=== PATIENT | male | born 1980 | race Asian ===

== ENCOUNTER 2019-09-16 00:28 | Emergency (ER) | payer MEDICAID, OTHER ==
[~2019-09-16] VITALS: Ht 157.5 cm; Wt 49.9 kg
--- NOTE | 2019-09-16 00:31 | NUR ---
PT BIB FRIEND FOR C/O L FACIAL PAIN AND SWELLING , L UPPER LIP LACERATION. BLEEDING NOTED BUT IS NOW CONTROLLED. AWAITING FOR MD BOLDEN. ANAYS.
[2019-09-16] MEDS ORDERED: oxyCODONE/APAP (5/325 MG) 1 UDTAB TABLET ONE (00:43)
[2019-09-16] MEDS ORDERED: TDAP [DIPH/PERTUSSIS/TET] 0.5 ML VIAL IM ONE ×2 (00:43→01:00)
[2019-09-16] MEDS ORDERED: oxyCODONE/APAP (5/325 MG) 1 UDTAB TABLET PO ONE (01:00)
--- NOTE | 2019-09-16 01:33 | NUR ---
[facility] AT BEDSIDE FOR REPORT.
[2019-09-16] MEDS ORDERED: LIDOCAINE HCL/MPF 1% 30 ML VIAL IJ ONE (02:45)
--- NOTE | 2019-09-16 02:50 | NUR ---
DR DAVIS AT BEDSIDE FOR LAC REPAIR
--- NOTE | 2019-09-16 03:13 | NUR ---
Patient discharged to home in stable condition. Written and verbal after care instructions given. Patient verbalizes understanding of instruction.pt. ambulatory with a steady gait
[2019-09-16 03:14] VITALS: BP 127/89
== END 2019-09-16 03:14 | disposition home or self-care (01) ==
LOC: ER 00:30
DX: S01.511A Laceration without foreign body of lip, initial encounter (principal); K03.81 Cracked tooth; R51 Headache; Y04.8XXA Assault by other bodily force, initial encounter; Y93.89 Activity, other specified; Y92.89 Other specified places as the place of occurrence of the external cause; Y99.8 Other external cause status
CPT/HCPCS: 12011; 70450; 70486; 90471; 90715; 99285; J3490

== ENCOUNTER → 2019-09-30 | Emergency (ER) | payer MEDICAID ==
[~2019-09-30] VITALS: Ht 162.6 cm; Wt 57.6 kg
[2019-09-30 15:12] VITALS: BP 134/77
--- NOTE | 2019-09-30 15:12 | NUR ---
A/O x4, Maicol speaking, understand little Faroese. To bed 4 for upper lip suture removal.
--- NOTE | 2019-09-30 15:50 | NUR ---
3 sutures removed, no bleeding.
--- NOTE | 2019-09-30 15:52 | NUR ---
Patient discharged to home in stable condition. Written and verbal after care instructions given. Patient verbalizes understanding of instruction.
== END | disposition home or self-care (01) ==
LOC: ER 15:15
DX: S01.511D Laceration without foreign body of lip, subsequent encounter (principal); X58.XXXD Exposure to other specified factors, subsequent encounter